=== PATIENT | female | born 1930 | race Caucasian/White ===

== ENCOUNTER → 2018-08-31 | Outpatient (CLI) | payer MEDICARE ==
[~2018-08-31] MED LIST: REGADENOSON 0.4 MG/5 ML PF SYG IVP SCH
== END | disposition home or self-care (01) ==
LOC: SHCH 08:41
PROVIDERS: ATTEND Internal Medicine Cardiovascular Disease
DX: I48.0 Paroxysmal atrial fibrillation (principal); I48.92 Unspecified atrial flutter
CPT/HCPCS: 78452; 93017; 96374; A9500 ×2; J2785

== ENCOUNTER → 2022-06-14 | Outpatient (CLI) | payer MEDICARE ==
[~2022-06-14] MED LIST changes: -REGADENOSON 0.4 MG/5 ML PF SYG IVP SCH; +VANCOMYCIN 1G/250ML KIT 250 ML IV SCH
[2022-06-14 15:57] LABS: BASOPHILS % (AUTO) 0.8 % (0.0-5.0); EOSINOPHILS % (AUTO) 1.1 % (0.0-8.0); HEMATOCRIT 37.3 % (36-48); LYMPHOCYTES % (AUTO) 10.4 % (21.0-51.0); MEAN CORPUSCULAR HEMOGLOBIN 27.4 pg (27.0-33.0); MEAN CORPUSCULAR HGB CONC 31.9 g/dL (32.0-36.0); MEAN CORPUSCULAR VOLUME 85.9 fL (79-99); MONOCYTES % (AUTO) 10.3 % (3.0-13.0); NEUTROPHILS % (AUTO) 77.1 % (40.0-77.0); PLATELET COUNT (AUTO) 238 K/uL (130-400); RED BLOOD CELL COUNT(AUTO) 4.34 MIL/uL (4.00-5.50); RED CELL DISTRIBUTION WIDTH 13.9 % (11.0-15.5); WHITE BLOOD COUNT (AUTO) 8.7 K/uL (4.8-10.8)
[2022-06-14 16:06] LABS: CREATININE 1.3 mg/dL (0.5-1.5); POTASSIUM 3.6 mmol/L (3.5-5.1)
[2022-06-14 16:09] LABS: INR 1.72 (0.85-1.15); PROTHROMBIN TIME 18.2 SEC (9.6-11.6)
[2022-06-14 16:11] LABS: PARTIAL THROMBOPLASTIN TIME 33.3 SEC (26.3-35.5)
== END | disposition home or self-care (01) ==
LOC: DAH 10:00 → EDSTATUS 14:00
PROVIDERS: ATTEND Internal Medicine Cardiovascular Disease
DX: Z01.810 Encounter for preprocedural cardiovascular examination (principal); T82.111A Breakdown (mechanical) of cardiac pulse generator (battery), initial encounter; I49.5 Sick sinus syndrome; I48.91 Unspecified atrial fibrillation; Y83.8 Other surgical procedures as the cause of abnormal reaction of the patient, or of later complication, without mention of misadventure at the time of the procedure
CPT/HCPCS: 93005; 80048; 85025; 85610; 85730; 36415; A6260